=== PATIENT | male | born 1970 | race African-American/Black ===

== ENCOUNTER 2018-11-19 06:41 | Outpatient (CLI) | payer MEDICARE, BC, OTHER ==
[~2018-11-19] VITALS: Ht 162.6 cm; Wt 112.9 kg
[2018-11-19] VITALS (15 sets, daily range): BP systolic 87–151; BP diastolic 46–93
[~2018-11-19 06:41] MED LIST: ALLO100T PO; APIX5TAB PO; ASPI-630 PO; ATEN50TA PO; BENZ-8 PO; CALC300T5 PO; CHOL100013 PO; ENOX120D3 SQ; LEVO25TA55 PO; LISI1TAB5 PO; MAGN400T3 PO; OMEG1CAP6 PO; OXYC10TA PO; TRAZ-118 PO
[2018-11-19 07:34] LABS: BASO # 0.1 x10^3/uL (0.0-0.2); BASO % 1 % (0-3); EOS # 0.1 x10^3/uL (0.0-0.7); EOS % 1 % (0-3); HEMATOCRIT 43.6 % (39.0-53.0); HEMOGLOBIN 14.4 g/dL (13.0-17.5); LYMPH # 2.9 x10^3/uL (1.0-4.8); LYMPH % 39 % (24-48); MEAN CORPUSCULAR HEMOGLOBIN 31 pg (25-35); MEAN CORPUSCULAR HGB CONC 33 g/dL (31-37); MEAN CORPUSCULAR VOLUME 94 fL (79-100); MONO # 0.7 x10^3/uL (0.0-1.1); MONO % 9 % (0-9); NEUT # 3.7 x10^3uL (1.8-7.7); NEUT % 50 % (31-73); PLATELET COUNT 299 x10^3/uL (140-400); RED BLOOD COUNT 4.62 x10^6/uL (4.30-5.70); RED CELL DISTRIBUTION WIDTH 13.9 % (11.5-14.5); WHITE BLOOD COUNT 7.4 x10^3/uL (4.0-11.0)
[2018-11-19 07:44] LABS: PROTHROMBIN TIME PATIENT 12.9 SEC (11.7-14.0)
[2018-11-19] MEDS ORDERED: LIDOCAINE WITH 8.4% SOD BICARB 3 ML DISP.SYRIN. ONE (08:22)
[2018-11-19] MEDS ORDERED: fentaNYL PF VIAL 250 MCG/5 ML VIAL ONE (08:23)
[2018-11-19] MEDS ORDERED: MIDAZOLAM HCL/PF 5 MG/5 ML VIAL. ONE (08:23)
[2018-11-19] MEDS ORDERED: fentaNYL PF VIAL 250 MCG/5 ML VIAL IV ONE (09:00)
[2018-11-19] MEDS ORDERED: MIDAZOLAM HCL/PF 5 MG/5 ML VIAL. IV ONE (09:00)
[2018-11-19] MEDS ORDERED: LIDOCAINE WITH 8.4% SOD BICARB 3 ML DISP.SYRIN. IJ ONE (09:00)
--- NOTE | 2018-11-19 09:48 | PDOC ---
MODERATE SEDATION ASSESSMENT RISKS/ALTERNATIVES Risks/Alternatives Risks and alternatives of this type of sedation and procedure discussed with: RISK/ALTERNATIVES: Patient H & P ON CHART H & P H & P on chart and reviewed for co-morbid conditions and appropriate labs. H&P ON CHART: Yes STATUS PREG STATUS ASSESSED: Yes MEDS/ALLERGIES REVIEWED Meds/Allergies Reviewed Medications and Allergies including time and route of recently administered narcotics and sedatives. MEDS/ALLERGIES REVIEWED: Yes ASA RATING ASA RATING: II AIRWAY ASSESSMENT Airway Assessment Airway patency, oral function limitations, presence of caps, crowns, dentures, partials, and ability to extend neck assessed. AIRWAY ASSESSMENT: Yes MALLAMPATI SCORE MALLAMPATI SCORE: II PRE-SEDATION ASSESSMENT PRE-SEDATION ASSESSMENT: Yes TED BAPTISTE MD Nov 19, 2018 09:48
--- NOTE | 2018-11-19 09:48 | PDOC ---
BRIEF OPERATIVE NOTE Pre-Op Diagnosis Left lung mass Post-Op Diagnosis left lung organized hematoma Procedure Performed CT aspiration Surgeon Anne-Marie Anesthesia Type: Conscious Sedation Specimens Obtained 60cc thin dark blood. Findings Large congealed pulmonary hematoma with minimal output Complications No immediate TED BAPTISTE MD Nov 19, 2018 09:47
[2018-11-19] MEDS ORDERED: IV NORMAL SALINE 500ML BAG 500 ML IV ONE (10:15)
--- NOTE | 2018-11-19 11:41 | RAD ---
CHEST AP ONLY History: Lung biopsy.. Comparison with August 06, 2018. No evidence of a pneumothorax. Pleural and parenchymal opacity in the left lung base appears similar to the prior study. No consolidating infiltrate on the right. No right pleural effusion. Heart size is stable. IMPRESSION: Pleural and parenchymal opacities in the left lung base appears similar. No consolidating right lung infiltrate or pneumothorax. Electronically signed by: Andrew Smith MD (11/19/2018 11:38 AM) [id number]
--- NOTE | 2018-11-19 12:09 | NUR ---
Discharge notes; Pt alert, oriented x 4. BP was low but maintained 100s to 90s after 250ml of NS bolus was administered. Cx-ray was done and Dr. Xie said that pt was clear to be discharged home. Pt drank a glass of coke. Discharge instructions (medication, activity, incision care, and F/U) were reviewed w/ pt and pt's daddy. Pt and father of the pt verbalized understanding. IV was discontinued by this nurse. Pt was taken out to lobby by this nurse via W/C.
--- NOTE | 2018-11-19 15:40 | RAD ---
Procedure: CT-guided left lung aspiration Clinical Indication: 48-year-old with complex left lung fluid collection Sedation: Conscious sedation was administered with a total intraprocedural [id number] time of 20 minutes. The patient was monitored by a qualified independent observer throughout the time of sedation. Please refer to the medical record for exact doses of medications utilized to achieve moderate sedation. Antibiotics: None Sterility: The procedure was performed in its entirety using appropriate elements of sterile technique. Consent: The procedure was explained in its entirety to the patient or the patients designated sales and service representative by a member of the treatment team, including a discussion of the risks, benefits and commonly accepted alternatives to the procedure, as well as the expected consequences of no therapy whatsoever. Discussion of the risks included, but was not limited to, those that are most frequent and those that are rare but possibly severe or life-threatening, as well as the possibility of unforeseen complications. Technique and Findings: Following informed consent, the patient was prepped and draped in usual sterile fashion. Preliminary CT scan of the area of interest was performed. 1% lidocaine was used to achieve local anesthesia over the area of interest. A small dermatotomy was made. Under periodic CT surveillance, an 18-gauge needle was advanced into the abnormality and 60 cc of dark thin bloody fluid was aspirated. Further aspiration could not be achieved despite repositioning the needle in multiple locations. Findings overall are consistent with organized hematoma. Fluid was sent for microbiologic analysis. Fluid was also sent for cytology. The needle was removed and hemostasis was achieved with manual compression. Complications: No immediate Impression: 1. CT-guided aspiration of a large organized hematoma the left lung. Sample was sent for microbiologic analysis as well as cytology. PQRS Compliance Statement: One or more of the following individualized dose reduction techniques were utilized for this examination: 1. Automated exposure control 2. Adjustment of the mA and/or kV according to patient size 3. Use of iterative reconstruction technique
--- NOTE | 2018-11-20 16:06 | PATHOLOGY ---
Note [facility] Accession Number: [id number] TESTS RESULT FLAG UNITS REF RANGE LAB Clinician Provided Cytology Information No. of containers..01 Other (Miscellaneous) Source: LEFT LUNG FLUID ASP DIAGNOSIS: LEFT LUNG FLUID ASP NEGATIVE FOR MALIGNANT CELLS. SCANT CELLULARITY. RED BLOOD CELLS ARE PRESENT. THIS INTERPRETATION INCLUDES EVALUATION OF A CELL BLOCK. Signed out by: 02 Jose Carlos Jerome MD, Pathologist NPI- [id number] Performed by: Chikis Sutherland, Golf Cart Assembler ([facility]) Gross description: 01 25ML, DARK RED, /LCS FLAG LEGEND: L-Low Normal,H-High Normal,LL-Alert Low,HH-Alert High <-Panic Low,>-Panic High,A-Abnormal,AA-Critical Abnormal Performed at: [address] [place] [address] Ross Arceo MD, 02 [facility] [address] [place] [address] Elio Shannon MD, Specimen Comment: A courtesy copy of this report has been sent to Specimen Comment: [phone], . Specimen Comment: Report sent to / DR CANADA Specimen Comment: A duplicate report has been generated due to demographic updates. Performed at: [address] [place], [place] [address] [address], [place], [place] [id number] MD Ross Arceo MD Phone: [phone]
== END 2018-11-19 12:00 | disposition home or self-care (01) ==
LOC: INTRAD 06:41
PROVIDERS: ATTEND Family Medicine
DX: J98.4 Other disorders of lung (principal); Z79.01 Long term (current) use of anticoagulants
CPT/HCPCS: 10009; 36415; 71045; 85025; 85610; 87071; 87075; J2250; J3010; J7040; 88112; 88305; 99152